=== PATIENT | female | born 1990 | race Caucasian/White ===

== ENCOUNTER 2017-06-11 19:16 | Emergency (ER) | payer BC ==
[~2017-06-11] VITALS: Ht 160 cm; Wt 80.7 kg
[2017-06-11 19:33] VITALS: BP 126/87; Ht 160 cm; Wt 80.7 kg
== END 2017-06-11 23:40 | disposition home or self-care (01) ==
LOC: ED 19:16
DX: Z53.21 Procedure and treatment not carried out due to patient leaving prior to being seen by health care provider (principal)